=== PATIENT | female | born 1955 | race Caucasian/White ===

== ENCOUNTER 2021-06-24 12:54 | Emergency (ER) | payer OTHER ==
[~2021-06-24] VITALS: Ht 157.5 cm; Wt 74.8 kg
[2021-06-24] MEDS ORDERED: ATORVASTATIN CA20 MG PO (13:13)
[2021-06-24] MEDS ORDERED: ESTRADIOL1 MG PO (13:13)
[2021-06-24] MEDS ORDERED: SYNTHROID137 MCG PO (13:14)
[2021-06-24] MEDS ORDERED: LOSARTAN POTASS50 MG PO (13:14)
[2021-06-24] MEDS ORDERED: ST. JOSEPH ASPI81 M2 PO (13:14)
[2021-06-24] MEDS ORDERED: OXYBUTYNIN CHLO10 MG PO (13:14)
[2021-06-24] MEDS ORDERED: JANUMET 50-1,01 EACH PO (13:15)
== END 2021-06-24 15:17 | disposition home or self-care (01) ==
LOC: ER 12:54
DX: N81.6 Rectocele (principal); K62.89 Other specified diseases of anus and rectum; E11.9 Type 2 diabetes mellitus without complications; Z79.84 Long term (current) use of oral hypoglycemic drugs; I10 Essential (primary) hypertension